=== PATIENT | male | born 1985 | race African-American/Black ===

== ENCOUNTER 2016-10-17 16:03 | Emergency (ER) | payer SELFPAY ==
[2016-10-17 16:07] VITALS: BP 124/65; PULSE 61; TEMP 97.9; BMI 23.5
--- NOTE | 2016-10-17 16:34 | PDOC ---
History of Present Illness - General Chief Complaint: Injury Stated Complaint: WORK INJURY Time Seen by Provider: 10/17/16 16:19 History Source: Patient Exam Limitations: No Limitations - History of Present Illness Initial Comments: CHIEF COMPLAINT: 31 y/o male c/o left arm and wrist pain s/p slip and fall 2 days ago. HISTORY OF PRESENT ILLNESS: The patient works at a senior care. He states a resident threw shampoo on the floor and he slipped landing left shoulder first into the wall. He states since then he's had left arm, wrist and finger pain. He has taken Advil for the pain. He denies head trauma, LOC, neck pain, shoulder pain, numbness/tingling in affected extremity. THe patient is left handed. Vital signs on arrival are within normal limits. REVIEW OF SYSTEMS: GENERAL/CONSTITUTIONAL: no fever/chills. No weakness. No weight change.n. MUSCULOSKELETAL: +left arm and wrist pain. No neck or back pain. SKIN: No rash or easy bruising. NEUROLOGIC: No headache, vertigo, loss of consciousness, or loss of sensation. PHYSICAL EXAM: VITAL_SIGNS: within normal limits GENERAL_APPEARANCE: alert, cooperative, mild obvious discomfort. MENTAL_STATUS: speech clear, oriented X 3, responds appropriately to questions. NEURO: motor intact and sensory intact in injured extremity. EXTREMITIES: good pulse in injured extremity. No TTP at left AC joint or clavicle. No clavicle tenting. Full flexion and extension of left arm, forearm and wrist. No swelling at left elbow. No swelling, TTP, or deformities to left forearm. Left 4th digit with moderate swelling; full flexion but full extension with pain. SKIN: warm, dry, good color. Past History - Past Medical History Allergies/Adverse Reactions: Allergies Allergy/AdvReac Type Severity Reaction Status Date / Time No Known Allergies Allergy Verified 10/17/16 16:04 Home Medications: Ambulatory Orders NK [No Known Home Medication] 10/17/16 Other medical history: none - Psycho/Social/Smoking Cessation Hx Anxiety: No Suicidal Ideation: No Smoking History: Never smoked Have you smoked in the past 12 months: No Information on smoking cessation initiated: No Hx Alcohol Use: No Drug/Substance Use Hx: No Substance Use Type: None *Physical Exam - Vital Signs Last Vital Signs Temp Pulse Resp BP Pulse Ox 97.9 F 61 18 124/65 100 10/17/16 16:05 10/17/16 16:05 10/17/16 16:05 10/17/16 16:05 10/17/16 16:05 Procedures - Splinting Splint Location: Left: Finger Pre-Proc Neuro Vasc Exam: normal Pre-Made Type: metal Splint Type: Yes: Finger Post-Proc Neuro Vasc Exam: normal Luis M Bandage: 2" Medical Decision Making - Medical Decision Making A/P: 31 y/o male with left arm and finger pain s/p slip and fall. Plan is as follows: 1. xray left forearm/wrist/hand The patient is currently refusing pain medication. xrays IMPRESSION: (wet read) No obvious deformities Will splint the patient's 4th digit and suggest ice. Suggested ortho follow up if no improvement in symptoms. The patient verbalizes understanding of all instructions, has no further questions and is awaiting discharge. *DC/Admit/Observation/Transfer Diagnosis at time of Disposition: Sprain of finger, left Qualifiers: Encounter type: initial encounter Qualified Code(s): S63.619A - Unspecified sprain of unspecified finger, initial encounter - Discharge Dispostion Disposition: HOME Condition at time of disposition: Good - Referrals Referrals: Uli Webber MD [Primary Care Provider] - Alex Tafoya MD [Staff Physician] - - Patient Instructions Printed Discharge Instructions: DI for Finger Sprain, How To Perform RICE (Rest , Ice, Compress, Elevate) Additional Instructions: Discharge Instructions: -Use finger splint for comfort -Follow up with Dr. Tafoya if no improvement in symptoms within 1 week -Apply ice to the affected area -Take Advil if needed for pain - Post Discharge Activity Work/School Note: Back to Work
== END 2016-10-17 18:17 | disposition home or self-care (01) ==
LOC: JERFT 16:03
PROC: 2W3KX1Z Immobilization of Left Finger using Splint (ICD-10-PCS; principal; 2016-10-17)
DX: S63.695A Other sprain of left ring finger, initial encounter (principal); W01.198A Fall on same level from slipping, tripping and stumbling with subsequent striking against other object, initial encounter; Y93.89 Activity, other specified; Y92.118 Other place in children's home and orphanage as the place of occurrence of the external cause; Y99.0 Civilian activity done for income or pay
CPT/HCPCS: 73090-TC-LT; 73110-TC-LT; 73130-TC-LT; 99281-25

== ENCOUNTER 2022-09-27 19:08 | Emergency (ER) | payer BC ==
[2022-09-27 19:25] VITALS: BP 133/82; PULSE 85; RESP 17; TEMP 98.7; BMI 28.1
[2022-09-27] MEDS ORDERED: diphenhydrAMINE HCL 25 MG CAPSULE (FP) PO ONE ×2 (20:11→20:12)
[2022-09-27] MEDS ORDERED: DEXAMETHASONE SOD PHOSPHATE 10 MG/1 ML VIAL IM ONE (20:11)
[2022-09-27] MEDS ORDERED: DEXAMETHASONE SOD PHOSPHATE 10 MG/1 ML VIAL ONE (20:12)
== END 2022-09-27 20:32 | disposition home or self-care (01) ==
LOC: JERFT 19:08 → JER 19:08 → JERFT 20:32
PROC: 3E023GC Introduction of Other Therapeutic Substance into Muscle, Percutaneous Approach (ICD-10-PCS; principal; 2022-09-27)
DX: F42.4 Excoriation (skin-picking) disorder (principal); T78.40XA Allergy, unspecified, initial encounter
CPT/HCPCS: 99284-25; J1100